=== PATIENT | male | born 1990 | race Caucasian/White ===

== ENCOUNTER 2022-05-15 16:14 | Emergency (ER) | payer OTHER ==
[~2022-05-15] VITALS: Ht 182.9 cm; Wt 93.2 kg
[2022-05-15 16:23] VITALS: BP 136/77
[2022-05-15] MEDS ORDERED: BACLOFEN 10 MG TABLET PO ONE (17:15)
[2022-05-15] MEDS ORDERED: OxyCODONE HCL/ACETAMINOPHEN 5-325 MG TABLET PO ONE (17:15)
[2022-05-15] MEDS ORDERED: KETOROLAC TROMETHAMINE 60 MG/2 ML VIAL IM ONE (17:15)
[2022-05-15] MEDS ORDERED: IBUP-2071 PO (18:28)
[2022-05-15] MEDS ORDERED: PERCT PO ×2 (18:28→18:29)
[2022-05-15] MEDS ORDERED: METH-812 PO (18:28)
== END 2022-05-15 18:41 | disposition home or self-care (01) ==
LOC: EMS 16:14
DX: M54.41 Lumbago with sciatica, right side (principal); G89.29 Other chronic pain
CPT/HCPCS: 99283; 96372; J1885

== ENCOUNTER 2022-10-23 10:48 | Emergency (ER) | payer OTHER ==
[~2022-10-23] VITALS: Ht 182.9 cm; Wt 84.1 kg
[~2022-10-23 10:48] MED LIST: IBUP-1493 PO; METH-812 PO; PERCT PO
[2022-10-23] MEDS ORDERED: METH-358 PO (10:59)
[2022-10-23 13:29] LABS: BASOPHILS % (AUTO) 0.8 % (0.0-2.0); EOSINOPHILS % (AUTO) 3.2 % (1.0-6.0); HEMATOCRIT 43.9 % (41-53); HEMOGLOBIN 14.9 g/dL (13.5-17.5); LYMPHOCYTES # (AUTO) 1.5 K/uL (1.0-4.8); LYMPHOCYTES % (AUTO) 28.2 % (22.0-44.0); MEAN CORPUSCULAR HEMOGLOBIN 31.5 pg (26.0-34.0); MEAN CORPUSCULAR VOLUME 93 fL (80-100); MONOCYTES # (AUTO) 0.4 K/uL (0.1-1.0); MONOCYTES % (AUTO) 8.7 % (2.0-9.0); NEUTROPHILS % (AUTO) 59.1 % (40.0-70.0); PLATELET COUNT (AUTO) 267 K/uL (150-450); RED BLOOD CELL COUNT(AUTO) 4.73 MIL/uL (4.50-5.90); RED CELL DISTRIBUTION WIDTH 12.7 % (11.5-14.5)
[2022-10-23 13:41] LABS: ANION GAP 8 mmol/L (8-16); CALCIUM, TOTAL 9.3 mg/dL (8.8-10.5); CARBON DIOXIDE 30 mmol/L (22-29); CHLORIDE 102 mmol/L (98-107); CREATININE 0.92 mg/dL (0.60-1.30); GLOMERULAR FILTR. RATE CALC > 60 mL/min (>60); GLUCOSE,RANDOM 85 mg/dL (70-110); POTASSIUM 4.1 mmol/L (3.5-5.1); SODIUM SERUM 140 mmol/L (136-145); UREA NITROGEN, BLOOD 18 mg/dL (7-18)
[2022-10-23 13:47] LABS: ALANINE AMINOTRANSFERASE 34 U/L (12-78); ALBUMIN 4.3 g/dL (3.4-5.0); ALKALINE PHOSPHATASE 88 U/L (46-116); ASPARTATE AMINOTRANSFERASE 25 U/L (15-37); BILIRUBIN,TOTAL 0.6 mg/dL (0.1-1.0); TOTAL PROTEIN, SERUM 7.5 g/dL (6.4-8.2)
[2022-10-23 14:30] VITALS: BP 129/67
== END 2022-10-23 14:47 | disposition home or self-care (01) ==
LOC: EMS 10:49
DX: K64.4 Residual hemorrhoidal skin tags (principal); Z98.890 Other specified postprocedural states
CPT/HCPCS: 80053; 85025; 99283